=== PATIENT | female | born 1995 | race Caucasian/White ===

== ENCOUNTER 2018-12-29 16:44 | Emergency (ER) | payer BC, SELFPAY ==
--- NOTE | 2018-12-29 16:59 | HMH.EDUTC ---
[facility] [place] Disposition Clinical Impression: Rectal bleeding Disposition: Home, Self-Care Condition on Discharge: Good Instructions: DI for Rectal Bleeding Prescriptions: Ondansetron [Zofran 4mg ODT] 4 mg PO TID PRN 10 Days #20 tab.rapdis PRN Reason: Nausea Referrals: Mauri Mitchell MD [Staff Physician] - Time of Disposition: 18:32 Medical Decision Making - Tyler Inquiry Pt receiving controlled substance: No Vital Signs: 12/29/18 17:00 Temperature 97.8 F Temperature Source Oral Pulse Rate [Right Radial] 82 Respiratory Rate 20 Blood Pressure [Right Arm] 140/79 Blood Pressure Mean [Right Arm] 99 Blood Pressure Source [Right Arm] Automatic Cuff Blood Pressure Position [Right Arm] Sitting 02 Sat by Pulse Oximetry 100 Oxygen Delivery Method Room Air - Lab Data Lab results reviewed: Yes: I reviewed the patient's lab results. Lab Results 12/29/18 17:34: WBC 7.2, RBC 4.33, Hgb 14.1, Hct 40.5, MCV 93.7, MCH 32.6 H, MCHC 34.7, RDW 11.9, Plt Count 179, MPV 7.7, Neut % (Auto) 71.6, Lymph % (Auto) 22.1, [place] % (Auto) 4.4, Eos % (Auto) 1.3, Baso % (Auto) 0.6, Neut # (Auto) 5.1, Lymph # (Auto) 1.6, [place] # (Auto) 0.3, Eos # (Auto) 0.1, Baso # (Auto) 0.1, ESR 11 12/29/18 17:34: Sodium 143, Potassium 4.6, Chloride 105, Carbon Dioxide 31, Anion Gap 11.6, BUN 17, Creatinine 0.94, Estimated Creat Clear 83, Estimated GFR 74, Est GFR ( Amer) 89, Glucose 89, Calcium 9.0, Total Bilirubin 0.4, AST 14 L, ALT 24, Alkaline Phosphatase 61, Total Protein 7.3, Albumin 4.1, Globulin 3.2, Albumin/Globulin Ratio 1.3, TSH 1.37 12/29/18 17:34: Serum HCG, Qual Negative Result diagrams: 12/29/18 17:34 12/29/18 17:34 [facility] [place] HPI - General Stated complaint: Bleeding Time Seen by Provider: 12/29/18 17:04 - History of Present Illness Provider Complaint: Patient has intermittent rectal bleeding X 2 weeks. Started after a BM but occurs sporadically as well. Denies constipation, hard stools or straining. Denies trauma. No history of hemorrhoids. No h/o IBD. Does have some nausea, fatigue. No indigestion. No vomiting. Onset (ago): week(s) (2) Relieving factors: none Exacerbating factors: none Associated symptoms: denies other symptoms Treatments prior to arrival: none - Related Data Previous Rx's Medication Instructions Recorded Ondansetron [Zofran 4mg ODT] 4 mg PO TID PRN 10 Days #20 12/29/18 tab.rapdis Allergies Allergy/AdvReac Type Severity Reaction Status Date / Time No Known Allergies Allergy Verified 08/07/18 10:50 [facility] History - Hepatitis A Screen Attestation statement:: This patient has been screened for Hepatitis A risk factors. I have reviewed the patient's past medical history: Yes Medical History: Denies:: Diabetes Mellitus Type 2, Hypertension, Urinary Tract Infection Other Medical History: Reports: Other Other Surgeries: Yes: Colonoscopy, Other - Social History Smoking Status: Never smoker Alcohol Intake: current Alcohol Intake Frequency:: a few times a week Family Hx:: Cancer ROS Obtained: Yes All systems reviewed & no additional complaints - Constitutional Constitutional: Reports fatigue - Gastrointestinal Gastrointestingal: Reports: abdominal pain, bright red blood in stools, nausea Physical Exam - General General appearance: alert, in no apparent distress - Head Head exam: atraumatic, normocephalic, normal inspection - Eye Eye exam: Present: normal appearance, PERRL, EOMI - ENT ENT exam: Present: normal exam, normal oropharynx, mucous membranes moist, TM's normal bilaterally, normal external ear exam - Neck Neck exam: Present: normal inspection, full ROM, trachea midline. Absent: meningismus, lymphadenopathy - Chest Chest inspection: Present: normal inspection, symmetric chest wall rise. Absent: tenderness - Respiratory Respiratory exam: Present: normal lung sounds bilaterally. Absent: respiratory distress - Cardiovascular Cardiovascu
[2018-12-29 17:00] VITALS: BP 140/79; PULSE 82; RESP 20; TEMP 36.6; O2SAT 100; BMI 21.4
--- NOTE | 2018-12-29 17:03 | ED_ITS ---
[facility] [place] Clinical Impression: Rectal bleeding Disposition: Home, Self-Care Condition on Discharge: Good Instructions: DI for Rectal Bleeding Prescriptions: Ondansetron [Zofran 4mg ODT] 4 mg PO TID PRN 10 Days #20 tab.rapdis PRN Reason: Nausea Referrals: Mauri Mitchell MD [Staff Physician] - Time of Disposition: 18:32 Medical Decision Making - Tyler Inquiry Pt receiving controlled substance: No Vital Signs: 12/29/18 17:00 Temperature 97.8 F Temperature Source Oral Pulse Rate [Right Radial] 82 Respiratory Rate 20 Blood Pressure [Right Arm] 140/79 Blood Pressure Mean [Right Arm] 99 Blood Pressure Source [Right Arm] Automatic Cuff Blood Pressure Position [Right Arm] Sitting 02 Sat by Pulse Oximetry 100 Oxygen Delivery Method Room Air - Lab Data Lab results reviewed: Yes: I reviewed the patient's lab results. Lab Results 12/29/18 17:34: WBC 7.2, RBC 4.33, Hgb 14.1, Hct 40.5, MCV 93.7, MCH 32.6 H, MCHC 34.7, RDW 11.9, Plt Count 179, MPV 7.7, Neut % (Auto) 71.6, Lymph % (Auto) 22.1, [place] % (Auto) 4.4, Eos % (Auto) 1.3, Baso % (Auto) 0.6, Neut # (Auto) 5.1, Lymph # (Auto) 1.6, [place] # (Auto) 0.3, Eos # (Auto) 0.1, Baso # (Auto) 0.1, ESR 11 12/29/18 17:34: Sodium 143, Potassium 4.6, Chloride 105, Carbon Dioxide 31, Anion Gap 11.6, BUN 17, Creatinine 0.94, Estimated Creat Clear 83, Estimated GFR 74, Est GFR ( Amer) 89, Glucose 89, Calcium 9.0, Total Bilirubin 0.4, AST 14 L, ALT 24, Alkaline Phosphatase 61, Total Protein 7.3, Albumin 4.1, Globulin 3.2, Albumin/Globulin Ratio 1.3, TSH 1.37 12/29/18 17:34: Serum HCG, Qual Negative Result diagrams: 12/29/18 17:34 12/29/18 17:34 [facility] [place] HPI - General Stated complaint: Bleeding Time Seen by Provider: 12/29/18 17:04 - History of Present Illness Provider Complaint: Patient has intermittent rectal bleeding X 2 weeks. Started after a BM but occurs sporadically as well. Denies constipation, hard stools or straining. Denies trauma. No history of hemorrhoids. No h/o IBD. Does have some nausea, fatigue. No indigestion. No vomiting. Onset (ago): week(s) (2) Relieving factors: none Exacerbating factors: none Associated symptoms: denies other symptoms Treatments prior to arrival: none - Related Data Previous Rx's Medication Instructions Recorded Ondansetron [Zofran 4mg ODT] 4 mg PO TID PRN 10 Days #20 12/29/18 tab.rapdis Allergies Allergy/AdvReac Type Severity Reaction Status Date / Time No Known Allergies Allergy Verified 08/07/18 10:50 [facility] History - Hepatitis A Screen Attestation statement:: This patient has been screened for Hepatitis A risk factors. I have reviewed the patient's past medical history: Yes Medical History: Denies:: Diabetes Mellitus Type 2, Hypertension, Urinary Tract Infection Other Medical History: Reports: Other Other Surgeries: Yes: Colonoscopy, Other - Social History Smoking Status: Never smoker Alcohol Intake: current Alcohol Intake Frequency:: a few times a week Family Hx:: Cancer ROS Obtained: Yes All systems reviewed & no additional complaints - Constitutional Constitutional: Reports fatigue
[2018-12-29 17:47] LABS: Basophils # 0.1 K/mm3 (0-0.2); Basophils % 0.6 % (0.1-2.0); Eosinophils # 0.1 K/mm3 (0.0-0.4); Eosinophils % 1.3 % (0.1-12.0); Hematocrit 40.5 % (37.0-47.0); Hemoglobin 14.1 g/dL (12.2-16.2); Lymphocytes # 1.6 K/mm3 (0.7-4.5); Lymphocytes % 22.1 % (10-50); Mean Corpuscular HGB Conc 34.7 g/dL (31.8-35.4); Mean Corpuscular Hemoglobin 32.6 pg (27.0-31.2); Mean Corpuscular Volume 93.7 fl (81-99); Mean Platelet Volume 7.7 fl (7.4-10.4); Monocytes # 0.3 K/mm3 (0.1-1.0); Monocytes % 4.4 % (1.7-9.3); Neutrophils # 5.1 K/mm3 (1.8-7.8); Neutrophils % 71.6 % (37.0-80.0); Platelet Count 179 K/mm3 (142-424); Red Blood Count 4.33 M/mm3 (4.20-5.40); Red Cell Distribution Width 11.9 % (11.5-17.5); White Blood Count 7.2 K/mm3 (4.8-10.8)
[2018-12-29 18:02] LABS: Alanine Aminotransferase 24 U/L (12-78); Albumin Level 4.1 gm/dL (3.4-5.0); Albumin/Globulin Ratio 1.3 (1.1-1.8); Alkaline Phosphatase 61 U/L (46-116); Anion Gap 11.6 mEq/L (5-15); Aspartate Amino Transferase 14 U/L (15-37); Bilirubin,Total 0.4 mg/dL (0.2-1.0); Blood Urea Nitrogen 17 mg/dL (7-18); Carbon Dioxide 31 mmol/L (21.0-32.0); Chloride 105 mmol/L (98-107); Creatinine Clearance Estimated 83 mL/min (50-200); Creatinine,Serum 0.94 mg/dL (0.55-1.02); Estimated Glomerular Filt Rate 74 ml/min (>60); GFR (African American) 89 ML/MIN (>60); Globulin 3.2 gm/dl (1.3-3.2); Glucose 89 mg/dL (74-106); Potassium 4.6 mmoL/L (3.5-5.1); Sodium 143 mmol/L (136-145); Thyroid Stimulating Hormone 1.37 uIU/ml (0.358-3.740); Total Protein,Serum 7.3 gm/dL (6.4-8.2)
[2018-12-29 18:08] LABS: HCG Qualitative, Serum Negative (Negative)
[2018-12-29 18:22] LABS: Erythrocyte Sedimentation Rate 11 mm/hr (0-20)
[2018-12-29 18:34] VITALS: BP 140/79; PULSE 82; RESP 20; TEMP 36.6; O2SAT 100
== END 2018-12-29 18:36 | disposition home or self-care (01) ==
PROVIDERS: Emergency Provider Physician Assistant
DX: K62.5 Hemorrhage of anus and rectum (principal)
CPT/HCPCS: 80053; 84443; 84703; 85025; 85651; 99201

== ENCOUNTER 2018-12-30 21:25 | Emergency (ER) | payer BC, SELFPAY ==
[2018-12-30 21:28] VITALS: BP 133/76; PULSE 72; RESP 18; TEMP 36.6; O2SAT 100; BMI 21.4
--- NOTE | 2018-12-30 21:37 | CT_ITS ---
CT abdomen pelvis w con CLINICAL INDICATION: Lower abdominal pain with vomiting, pain with bowel movements ITS.REASON: abd pain ORDERING PHYSICIAN: Asher Zaragoza MD PATIENT AGE: 23 years COMPARISON: None TECHNIQUE: Axial images obtained with sagittal and coronal reformats. All CT scans at the facility use one or more dose reduction, viz: automated exposure control, ma/kV adjustment per patient size (including targeted exams where dose is matched to indication, i.e. head), or iterative reconstruction technique. PROCEDURE: Oral Contrast: None IV Contrast: 75 mL Optiray 350. FINDINGS: Lower thorax: No acute finding The liver, spleen, adrenal glands, pancreas, and kidneys have an unremarkable appearance. Gallbladder is contracted. No intestinal obstruction or free air. No evidence of appendicitis. There are multiple unopacified bowel loops present within the abdomen/pelvis which could obscure or mimic pathology. If symptoms persists, consider repeating exam with IV and oral contrast administration. There are fluid-filled loops of small bowel which are nonspecific. Enteritis is a consideration. Trace amount of fluid is present in the pelvis. No acute bony findings. IMPRESSION: 1. Possible enteritis 2. There are multiple unopacified bowel loops present within the abdomen/pelvis which could obscure or mimic pathology. If symptoms persists, consider repeating exam with IV and oral contrast administration.
[2018-12-30 21:59] LABS: Microscopic, Urine URINE MICROSCOPIC (MICROSCOPIC)
[2018-12-30 22:09] LABS: Appearance,Urine CLEAR (Clear); Bilirubin,Urine Negative (Negative); Blood, Urine TRACE-I (Negative); Color,Urine YELLOW (Yellow); Glucose,Urine (UA) Negative (Negative); Ketones,Urine Negative (Negative); Leukocyte Esterase,Urine 1+ (Negative); Nitrate,Urine Negative (Negative); Protein,Urine Negative (Negative); Urobilinogen,Urine 0.2 EU/dl (0.2)
[2018-12-30 22:11] LABS: Urine Pregnancy, HCG Qual. Negative (Negative)
[2018-12-30 22:11] LABS: Basophils % 0.7 % (0.1-2.0); Eosinophils # 0.2 K/mm3 (0.0-0.4); Eosinophils % 3.4 % (0.1-12.0); Hematocrit 38.2 % (37.0-47.0); Hemoglobin 13.3 g/dL (12.2-16.2); Lymphocytes % 33.9 % (10-50); Mean Corpuscular HGB Conc 34.9 g/dL (31.8-35.4); Mean Corpuscular Hemoglobin 32.8 pg (27.0-31.2); Mean Corpuscular Volume 94.2 fl (81-99); Monocytes # 0.3 K/mm3 (0.1-1.0); Monocytes % 5.5 % (1.7-9.3); Neutrophils # 3.4 K/mm3 (1.8-7.8); Neutrophils % 56.5 % (37.0-80.0); Platelet Count 165 K/mm3 (142-424); Red Blood Count 4.05 M/mm3 (4.20-5.40); Red Cell Distribution Width 11.9 % (11.5-17.5)
[2018-12-30 22:16] LABS: Amorphous Sediment,Urine Trace /lpf
--- NOTE | 2018-12-30 22:22 | PC.NURSE ---
pt in radiology
[2018-12-30 22:30] LABS: Alanine Aminotransferase 25 U/L (12-78); Albumin/Globulin Ratio 1.3 (1.1-1.8); Alkaline Phosphatase 60 U/L (46-116); Amylase 84 U/L (25-115); Anion Gap 10.7 mEq/L (5-15); Aspartate Amino Transferase 13 U/L (15-37); Bilirubin,Total 0.5 mg/dL (0.2-1.0); Blood Urea Nitrogen 17 mg/dL (7-18); Calcium 8.8 mg/dL (8.5-10.1); Carbon Dioxide 31 mmol/L (21.0-32.0); Chloride 106 mmol/L (98-107); Creatinine Clearance Estimated 89 mL/min (50-200); Creatinine,Serum 0.88 mg/dL (0.55-1.02); Estimated Glomerular Filt Rate 80 ml/min (>60); GFR (African American) 96 ML/MIN (>60); Glucose 86 mg/dL (74-106); Lipase 127 u/L (73-393); Potassium 3.7 mmoL/L (3.5-5.1); Sodium 144 mmol/L (136-145)
[2018-12-30 22:45] VITALS: BP 99/61; PULSE 58; RESP 18; O2SAT 100
--- NOTE | 2018-12-30 23:10 | PC.NURSE ---
at the bedside at this time.
--- NOTE | 2018-12-30 23:25 | HMH.EDABDPAI ---
ED Disposition Clinical Impression: Enterocolitis Disposition: Home, Self-Care Condition on Discharge: Good Instructions: DI for Acute Abdomen, DI for Colitis Prescriptions: Dicyclomine HCl [Bentyl 10mg capsule] 10 mg PO TID 5 Days #15 cap Ciprofloxacin HCl [Cipro 500mg Tab] 500 mg PO BID 3 Days #6 tab metroNIDAZOLE [Flagyl 250mg Tablet] 500 mg PO TID 3 Days #18 tab Referrals: Provider,Referral, MD [Primary Care Provider] - Time of Disposition: 23:31 - Critical Care Critical Care Time: No Attestation: On 12/30/18, the high probability of a clinically significant, sudden or life threatening deterioration of the following system(s) required my full and direct attention, intervention and personal management. The time I documented below is in addition to time spent performing reported procedures but includes the following listed in this critical care notation. Medical Decision Making - Medical Records Medical records reviewed: Yes: I reviewed the patient's medical records. - Tyler Inquiry Pt receiving controlled substance: No Tyler was queried for this patient: No Vital Signs: 12/30/18 21:28 12/30/18 22:45 Temperature 97.9 F Temperature Source Oral Pulse Rate [Right Brachial] 72 58 L Respiratory Rate 18 18 Blood Pressure [Right Arm] 133/76 99/61 L Blood Pressure Mean [Right Arm] 95 73 Blood Pressure Source [Right Arm] Automatic Cuff Automatic Cuff Blood Pressure Position [Right Arm] Sitting Sitting 02 Sat by Pulse Oximetry 100 100 Oxygen Delivery Method Room Air Room Air - Lab Data Lab results reviewed: Yes: I reviewed the patient's lab results. Lab Results 12/30/18 21:50: Urine Color Yellow, Urine Appearance Clear, Urine pH 6.0, Ur Specific [place] 1.020, Urine Protein Negative, Urine Glucose (UA) Negative, Urine Ketones Negative, Urine Blood Trace-i, Urine Nitrate Negative, Urine Bilirubin Negative, Urine Urobilinogen 0.2, Ur Leukocyte Esterase 1+ A, Urine RBC 3-5, Urine WBC 3-5, Ur Squamous Epith Cells 5-10, Amorphous Sediment Trace 12/30/18 21:50: Urine HCG, Qual Negative 12/30/18 21:55: WBC 6.0, RBC 4.05 L, Hgb 13.3, Hct 38.2, MCV 94.2, MCH 32.8 H, MCHC 34.9, RDW 11.9, Plt Count 165, MPV 8.0, Neut % (Auto) 56.5, Lymph % (Auto) 33.9, [place] % (Auto) 5.5, Eos % (Auto) 3.4, Baso % (Auto) 0.7, Neut # (Auto) 3.4, Lymph # (Auto) 2.0, [place] # (Auto) 0.3, Eos # (Auto) 0.2, Baso # (Auto) 0.0 12/30/18 21:55: Sodium 144, Potassium 3.7, Chloride 106, Carbon Dioxide 31, Anion Gap 10.7, BUN 17, Creatinine 0.88, Estimated Creat Clear 89, Estimated GFR 80, Est GFR ( Amer) 96, Glucose 86, Calcium 8.8, Total Bilirubin 0.5, AST 13 L, ALT 25, Alkaline Phosphatase 60, Total Protein 7.0, Albumin 4.0, Globulin 3.0, Albumin/Globulin Ratio 1.3, Amylase 84, Lipase 127 Result diagrams: 12/30/18 21:55 12/30/18 21:55 Orders (Tests/Meds): ED MEDICATIONS Generic Name Dose Route Start Last Admin Trade Name Freq PRN Reason Stop Dose Admin Atropine/Hyoscyam/Phenobarb/Scopol 32.5 mg 12/30/18 23:30 Elixir 32.5mg/10ml Udc PO 12/30/18 23:31 ONCE ONE Sodium Chloride 1,000 mls @ 999 mls/hr 12/30/18 21:45 12/30/18 22:05 Sod Chlor 0.9% 1000ml Bag IV 12/30/18 22:45 999 mls/hr .Q1H1M ILIANA Administration Discontinued Medications Generic Name Dose Route Start Last Admin Trade Name Freq PRN Reason Stop Dose Admin Ondansetron HCl 4 mg 12/30/18 21:38 12/30/18 22:05 Zofran 4mg/2ml Vial IV 12/30/18 21:39 4 mg ONCE ONE Administration ORDERS Category Date Time Status CT abdomen pelvis w con Stat Cat Scan 12/30/18 21:37 Taken Urine Culture Stat Micro 12/30/18 21:50 Received Abdominal Pain HPI - General Chief Complaint: Abdominal Pain Stated Complaint: ABD PAIN Time Seen by Provider: 12/30/18 22:30 Mode of Arrival: Ambulatory Source of Information: Patient Limitations: No Limitations Description of Symptoms (Recalled from ER Triage Doc. by RN): Pt c/o a
--- NOTE | 2018-12-30 23:28 | ED_ITS ---
ED Disposition Clinical Impression: Enterocolitis Disposition: Home, Self-Care Condition on Discharge: Good Instructions: DI for Acute Abdomen, DI for Colitis Prescriptions: Dicyclomine HCl [Bentyl 10mg capsule] 10 mg PO TID 5 Days #15 cap Ciprofloxacin HCl [Cipro 500mg Tab] 500 mg PO BID 3 Days #6 tab metroNIDAZOLE [Flagyl 250mg Tablet] 500 mg PO TID 3 Days #18 tab Referrals: Provider,Referral, MD [Primary Care Provider] - Time of Disposition: 23:31 - Critical Care Critical Care Time: No Attestation: On 12/30/18, the high probability of a clinically significant, sudden or life threatening deterioration of the following system(s) required my full and direct attention, intervention and personal management. The time I documented below is in addition to time spent performing reported procedures but includes the following listed in this critical care notation. Medical Decision Making - Medical Records Medical records reviewed: Yes: I reviewed the patient's medical records. - Tyler Inquiry Pt receiving controlled substance: No Tyler was queried for this patient: No Vital Signs: 12/30/18 21:28 12/30/18 22:45 Temperature 97.9 F Temperature Source Oral Pulse Rate [Right Brachial] 72 58 L Respiratory Rate 18 18 Blood Pressure [Right Arm] 133/76 99/61 L Blood Pressure Mean [Right Arm] 95 73 Blood Pressure Source [Right Arm] Automatic Cuff Automatic Cuff Blood Pressure Position [Right Arm] Sitting Sitting 02 Sat by Pulse Oximetry 100 100 Oxygen Delivery Method Room Air Room Air - Lab Data Lab results reviewed: Yes: I reviewed the patient's lab results. Lab Results 12/30/18 21:50: Urine Color Yellow, Urine Appearance Clear, Urine pH 6.0, Ur Specific [place] 1.020, Urine Protein Negative, Urine Glucose (UA) Negative, Urine Ketones Negative, Urine Blood Trace-i, Urine Nitrate Negative, Urine Bilirubin Negative, Urine Urobilinogen 0.2, Ur Leukocyte Esterase 1+ A, Urine RBC 3-5, Urine WBC 3-5, Ur Squamous Epith Cells 5-10, Amorphous Sediment Trace 12/30/18 21:50: Urine HCG, Qual Negative 12/30/18 21:55: WBC 6.0, RBC 4.05 L, Hgb 13.3, Hct 38.2, MCV 94.2, MCH 32.8 H, MCHC 34.9, RDW 11.9, Plt Count 165, MPV 8.0, Neut % (Auto) 56.5, Lymph % (Auto) 33.9, [place] % (Auto) 5.5, Eos % (Auto) 3.4, Baso % (Auto) 0.7, Neut # (Auto) 3.4, Lymph # (Auto) 2.0, [place] # (Auto) 0.3, Eos # (Auto) 0.2, Baso # (Auto) 0.0 12/30/18 21:55: Sodium 144, Potassium 3.7, Chloride 106, Carbon Dioxide 31, Anion Gap 10.7, BUN 17, Creatinine 0.88, Estimated Creat Clear 89, Estimated GFR 80, Est GFR ( Amer) 96, Glucose 86, Calcium 8.8, Total Bilirubin 0.5, AST 13 L, ALT 25, Alkaline Phosphatase 60, Total Protein 7.0, Albumin 4.0, Globulin 3.0, Albumin/Globulin Ratio 1.3, Amylase 84, Lipase 127 Result diagrams: 12/30/18 21:55 12/30/18 21:55 Orders (Tests/Meds): ED MEDICATIONS Generic Name Dose Route Start Last Admin Trade Name Freq PRN Reason Stop Dose Admin Atropine/Hyoscyam/Phenobarb/Scopol 32.5 mg 12/30/18 23:30 Elixir 32.5mg/10ml Udc PO 12/30/18 23:31 ONCE ONE Sodium Chloride 1,000 mls @ 999 mls/hr 12/30/18 21:45 12/30/18 22:05 Sod Chlor 0.9% 1000ml Bag IV 12/30/18 22:45 999 mls/hr .Q1H1M ILIANA Administration
[2018-12-30 23:37] VITALS: BP 108/70; PULSE 71; RESP 16; TEMP 36.8; O2SAT 100
== END 2018-12-30 23:39 | disposition home or self-care (01) ==
PROVIDERS: Emergency Provider Emergency Medicine
DX: K52.9 Noninfective gastroenteritis and colitis, unspecified (principal)
CPT/HCPCS: 74177; 80053; 81001; 81025; 82150; 83690; 85025; 87086; 96365; 96375; 99283; J2405

== ENCOUNTER → 2018-12-31 10:41 | Outpatient (CLI) | payer BC, SELFPAY ==
[2018-12-31 10:57] LABS: Adenovirus F 40/41, stool Not Detected (NotDetected); Astrovirus Not Detected (NotDetected); Campylobacter Not Detected (NotDetected); Cryptosporidium Not Detected (NotDetected); Cyclospora Cayetanesis Not Detected (NotDetected); Entamoeba histolytica Not Detected (NotDetected); Enteroaggregative E coli Not Detected (NotDetected); Enteropathogenic E coli Not Detected (NotDetected); Enterotoxigenic E coli Not Detected (NotDetected); Giardia lamblia Not Detected (NotDetected); Norovirus Not Detected (NotDetected); Plesimonas Shigalloides, PCR Not Detected (NotDetected); Rotavirus A Not Detected (NotDetected); Salmonella, PCR Not Detected (NotDetected); Sapovirus Not Detected (NotDetected); Shiga-like toxin E coli Not Detected (NotDetected); Shigella Enterovasive E coli Not Detected (NotDetected); Vibrio Cholerae Not Detected (NotDetected); Vibrio, PCR Not Detected (NotDetected); Yersinia Entercolitica, PCR Not Detected (NotDetected)
--- NOTE | 2018-12-31 11:06 | PC.NURSE ---
PT PRESENTS AND DROPS OFF STOOL SPECIMAN , SHE WAS TOLD BY DR BAKER TO BRING ONE BACK.
[2018-12-31 13:41] LABS: Clostridium Difficile A/B, PCR Detected (NotDetected)
--- NOTE | 2018-12-31 13:47 | PC.NURSE ---
LAB CALLED BACK WITH DIARRHEA PANEL RESULTS SHE IS POSITIVE FOR C-DIFF PT IS ON BENTYL,CIPRO AND FLAGYL , DR REYNOLDS SAID THAT WAS FINE AND TO F/U WITH PCP. PT NOTIFIED AND IS GONNA MAKE AN APPT AT DR PATEL OFFICE
== END ==
PROVIDERS: PCP Emergency Medicine; Visit Provider Emergency Medicine
DX: R19.7 Diarrhea, unspecified (principal)
CPT/HCPCS: 87507

== ENCOUNTER 2019-01-12 12:00 | Outpatient (CLI) | payer BC, SELFPAY ==
[2019-01-12 12:11] VITALS: BMI 21.4
[2019-01-12 12:30] VITALS: BP 115/58; PULSE 78; RESP 18; O2SAT 100
[2019-01-12 12:56] LABS: Alanine Aminotransferase 36 U/L (12-78); Albumin Level 3.9 gm/dL (3.4-5.0); Albumin/Globulin Ratio 1.3 (1.1-1.8); Alkaline Phosphatase 52 U/L (46-116); Anion Gap 8.8 mEq/L (5-15); Aspartate Amino Transferase 14 U/L (15-37); Bilirubin,Total 0.4 mg/dL (0.2-1.0); Blood Urea Nitrogen 10 mg/dL (7-18); Calcium 8.7 mg/dL (8.5-10.1); Carbon Dioxide 30 mmol/L (21.0-32.0); Chloride 107 mmol/L (98-107); Creatinine Clearance Estimated 82 mL/min (50-200); Creatinine,Serum 0.96 mg/dL (0.55-1.02); Estimated Glomerular Filt Rate 72 ml/min (>60); GFR (African American) 87 ML/MIN (>60); Globulin 2.9 gm/dl (1.3-3.2); Glucose 72 mg/dL (74-106); Potassium 3.8 mmoL/L (3.5-5.1); Sodium 142 mmol/L (136-145); Total Protein,Serum 6.8 gm/dL (6.4-8.2)
[2019-01-12 13:30] VITALS: BP 101/52; PULSE 62; RESP 18
[2019-01-12 14:30] VITALS: BP 105/59; PULSE 59; RESP 18
== END 2019-01-12 14:40 | disposition home or self-care (01) ==
LOC: INF 12:01
PROVIDERS: PCP Emergency Medicine; Visit Provider Emergency Medicine
DX: A04.72 Enterocolitis due to Clostridium difficile, not specified as recurrent (principal)
CPT/HCPCS: 80053; 96360; 96361